=== PATIENT | female | born 1985 | race Caucasian/White ===

== ENCOUNTER 2018-09-19 19:50 | Emergency (ER) | payer OTHER ==
[~2018-09-19] VITALS: Ht 175.3 cm; Wt 99.8 kg
[2018-09-19] MEDS ORDERED: ROBAXIN500 MG PO (21:10)
[2018-09-19] MEDS ORDERED: MEDROLDOSEPACK PO (21:10)
[2018-09-19] MEDS ORDERED: NAPROSYN500 MG PO (21:10)
[2018-09-19 21:26] VITALS: BP 158/100
== END 2018-09-19 21:26 | disposition home or self-care (01) ==
LOC: M.ERS 19:50
DX: S39.012A Strain of muscle, fascia and tendon of lower back, initial encounter (principal); M54.16 Radiculopathy, lumbar region; Z98.890 Other specified postprocedural states; X58.XXXA Exposure to other specified factors, initial encounter; Y93.89 Activity, other specified; Y92.89 Other specified places as the place of occurrence of the external cause; Y99.8 Other external cause status